=== PATIENT | female | born 1955 | race Caucasian/White ===

== ENCOUNTER 2019-01-25 10:58 | Emergency (ER) | payer BC ==
--- OUTSIDE RECORDS SUMMARY | 2019-01-25 11:05 | XMS REPORT | Continuity of Care Document ---
:1955 External Reference #:[id number] Author Name Alisa Hubbard Care Team Providers Name Role Phone Dai Romero RPA Primary Care Physician Unavailable Payers Date Identification Numbers Payment Provider Subscriber Effective: 2017 Policy Number: [id number] [employer] Elicia Epperson PayID: [id number] [address] [address] [place] [address] Problems Active Problems Provider Date Gastroesophageal reflux disease LENARD Schaeffer Onset: 11/07/2018 Family History Date Family Member(s) Observation Comments Father Hypertension Mother Diabetes,Cerebrovascular Accident-DVT Social History Type Date Description Comments Sex Unknown Marital Status Lives With Diet Patient is on a and Paleo diet gluten-free diet Occupation [employer] ETOH Use Rarely consumes alcohol Tobacco Use Start: Unknown End: Patient is a former smoker Quit 1994 Pack Years 5 Unknown Smoking Status Reviewed: 01/23/19 Patient is a former smoker Quit 1995 Pack Years 5 Allergies, Adverse Reactions, Alerts Description No Known Drug Allergies Medications Active Medications SIG Qnty Indications Ordering Date Provider Irbesartan 1 by mouth 01/23/2019 150mg Tablets every day MD Ki Multi Vitamin Daily 1 by mouth 30tabs 01/23/2019 Tablets every day MD Ki Vitamin D2 1 Po qd 12tabs 01/23/2019 2000Unit Tablets MD Ki Hydrochlorothiazide 1 cap (or 90caps I10 01/23/2019 12.5mg Capsules tab) by mouth MD Ki every day Omeprazole 1 by mouth 11/07/[address] twice a day MD Ki Vital Signs Date Vital Result Comment 01/23/2019 2:09pm Height 62 inches 5'2" Weight 194.38 lb Heart Rate 84 /min BP Systolic Sitting 158 mmHg BP Diastolic Sitting 90 mmHg O2 % BldC Oximetry 96 % BMI (Body Mass Index) 35.5 kg/m2 Procedures Date Code Description Status 12/13/2016 [id number] Mammogram Completed 08/08/2010 [id number] Flexible Sigmoidoscopy Completed 08/08/2009 [id number] Colonoscopy Completed Plan of Treatment Future Appointment(s):02/21/2019 9:30 am - LENARD Schaeffer at [facility]01/23/2019 - YOUSIF Schaeffer Essential (primary) hypertensionNew Medication:Hydrochlorothiazide 12.5 mg - 1 cap (or tab) by mouth every dayComments:Current medication(s): Irbesartan 150mg dailyAdd HCTZ 12.5mg dailyFollow up:1 [id number] Gastro-esophageal reflux disease with esophagitisComments:Increase Omeprazole 40mg to twice a day
[2019-01-25 11:33] VITALS: BP 144/81
--- NOTE | 2019-01-25 12:02 | ED ---
Lower Extremity - HPI Summary HPI Summary: 63 yr old female with the complaint of pain in the left great toe MP joint area and the pain radiates up the medial left calf. She denies trauma. Denies prior episode of this. She has a screw in 1st metatarsal and prior bunionectomy in [place] in the year 1999. She denies fever chills. She has no other complaints. - History of Current Complaint Chief Complaint: UCLowerExtremity Stated Complaint: LT FOOT PAIN Time Seen by Provider: 01/25/19 11:54 Pain Intensity: 8 - Allergies/Home Medications Allergies/Adverse Reactions: Allergies Allergy/AdvReac Type Severity Reaction Status Date / Time No Known Allergies Allergy Verified 01/25/19 11:33 Home Medications: Home Medications Irbesartan 75 mg PO DAILY 01/25/19 [History Confirmed 01/25/19] Omeprazole 40 mg PO BID 01/25/19 [History] PMH/Surg Hx/FS Hx/Imm Hx Cardiovascular History: Reports: Hx Hypertension - Surgical History Surgery Procedure, Year, and Place: hyster. choley. bunions bilat Infectious Disease History: No Infectious Disease History: Denies: Traveled Outside the [place] in Last 30 Days - Family History Known Family History: Positive: None - Social History Occupation: Employed Full-time Alcohol Use: None Substance Use Type: Reports: None Smoking Status (MU): Former Smoker Review of Systems Constitutional: Negative Positive: Other - left great toe and foot and medial calf pain All Other Systems Reviewed And Are Negative: Yes Physical Exam Triage Information Reviewed: Yes Vital Signs On Initial Exam: Initial Vitals Temp Pulse Resp BP Pulse Ox 98.6 F 87 18 144/81 97 01/25/19 11:27 01/25/19 11:27 01/25/19 11:27 01/25/19 11:27 01/25/19 11:27 Vital Signs Reviewed: Yes Appearance: Positive: Well-Appearing, No Pain Distress Skin: Positive: Other - mild erythema medial 1st MP area with tenderness as well. She has tenderness over the medial calf without any red lines or lymphangitis. No obvious Soft tissue swelling. Head/Face: Positive: Normal Head/Face Inspection Eyes: Positive: EOMI Respiratory/Lung Sounds: Positive: Breath Sounds Present Cardiovascular: Positive: RRR, Pulses are Symmetrical in both Upper and Lower Extremities Abdomen Description: Negative: Distended Musculoskeletal: Positive: Strength/ROM Intact, Other - she has tenderness over the medial left 1st metatarsal with some redness. Some tenderness over the medial left calf. No redness or lympahgitis Neurological: Positive: Sensory/Motor Intact, Alert, Oriented to Person Place, Time, CN Intact II-III, Speech Normal Diagnostics - Vital Signs Vital Signs Temp Pulse Resp BP Pulse Ox 01/25/19 11:27 98.6 F 87 18 144/81 97 - Laboratory Lab Statement: Any lab studies that have been ordered have been reviewed, and results considered in the medical decision making process. - Radiology left foot Radiology Interpretation Completed By: Radiologist - STS medial 1st metatarsal in area of screw - Ultrasound venous doppler left Ultrasound Interpretation Completed By: Radiologist - nad Lower Extremity Course/Dx - Course Course Of Treatment: 63 yr female with possible cellulits, possible gout left great toe. She has hardware in the 1st metatarsal. Dr Conti contacted from Orthopedic surgery, she will see the patient in the morning at the office. - Diagnoses Provider Diagnoses: Hypertension, Cellulitis, Gout Discharge - Sign-Out/Discharge Documenting (check all that apply): Patient Departure All imaging exams completed and their final reports reviewed: Yes - Discharge Plan Condition: Good Disposition: HOME Patient Education Materials: Cellulitis (ED), Gout (ED), Hypertension (ED) Referrals: Dai Romero PA [Primary Care Provider] - 2 Days Damion Conti MD [Medical Doctor] - 01/26/19 - Billing Disposition and Condition Condition: GOOD Disposition: Home
[2019-01-25] MEDS ORDERED: Indomethacin CAP* 25 MG CAP PO ONE (14:14)
[2019-01-25] MEDS ORDERED: Cephalexin CAP* 500 MG PO ONE (14:15)
== END 2019-01-25 15:11 | disposition home or self-care (01) ==
LOC: UCCORT 10:58
DX: M10.9 Gout, unspecified (principal); L03.032 Cellulitis of left toe; I10 Essential (primary) hypertension; Z87.891 Personal history of nicotine dependence
CPT/HCPCS: 99202; A9270-GY; G0463